=== PATIENT | male | born 1995 | race Caucasian/White ===

== ENCOUNTER 2017-10-21 15:20 | Emergency (ER) | payer MEDICAID, OTHER ==
[~2017-10-21 15:20] MED LIST: ARIP1TAB5 PO; ARIP5S PO
[2017-10-21 15:23] VITALS: BP 148/70; PULSE 73; RESP 18; TEMP 98.6
[2017-10-21] MEDS ORDERED: LIDOCAINE 1%/EPINEPHrine 1:100,000 SOLN 20 ML VIAL INFIL ONE (15:30)
[2017-10-21] MEDS ORDERED: ACETAMINOPHEN/HYDROcodone 325 MG/5 MG TAB PO ONE (15:30)
[2017-10-21] MEDS ORDERED: TETANUS/DIPHTHERIA TOXOID ADULT 0.5 ML VIAL IM ONE (15:30)
--- NOTE | 2017-10-21 15:31 | PD ---
HPI Chief Complaint: Laceration/Skin Injury Time Seen by Provider: 15:30 Travel History International Travel<30 days: No Contact w/Intl Traveler<30days: No Traveled to known affect area: No History of Present Illness HPI 22-year-old male since for evaluation laceration to the anterior left. It was sustained prior to arrival when he was using a chainsaw to cut trees and the chainsaw kicked back and cut his thigh. He now has pain at the site of the laceration, throbbing, worse with palpation. Denies any numbness, tingling, weakness distal to the injury site. His last tetanus vaccination is unknown. No other complaints. PFSH Past Medical History ADHD: Yes (self) Bipolar Disorder: Yes Cancer: No Diabetes: No Diminished Hearing: No Psychiatric: Yes (adhd) Immunizations Current: Yes Migraines: Yes Seizures: No Thyroid Disease: No Ulcer: No Past Surgical History Appendectomy: No Cholecystectomy: No Social History Alcohol Use: Yes Tobacco Use: Yes Substance Use: No Allergies-Medications (Allergen,Severity, Reaction): Coded Allergies: No Known Allergies (Unverified , 10/21/17) Reported Meds & Prescriptions Reported Meds & Active Scripts Active Keflex (Cephalexin) 500 Mg Cap 500 Mg PO Q8H 5 Days Reported Abilify (Aripiprazole) 10 Mg Tab 10 Mg PO HS Abilify oral solution (Aripiprazole) 1 Mg/Ml Kely 10 Mg PO HS Review of Systems General / Constitutional: No: Fever, Chills Musculoskeletal: Positive: Pain Skin: Positive Other (positive for laceration, pain) Neurologic: No: Paresthesia Physical Exam Narrative GENERAL: Well-developed well-nourished male in no acute distress SKIN: Warm and dry. 5 cm linear laceration to the anterior proximal left thigh. It extends through the dermis. There is some visible subcutaneous tissue. No bony visibility. No current bleeding. HEAD: Atraumatic. Normocephalic. EYES: Pupils equal and round. No scleral icterus. No injection or drainage. ENT: No nasal bleeding or discharge. Mucous membranes pink and moist. NECK: Trachea midline. No JVD. CARDIOVASCULAR: Regular rate and rhythm. No murmur appreciated. RESPIRATORY: No accessory muscle use. Clear to auscultation. Breath sounds equal bilaterally. MUSCULOSKELETAL: Skin as noted above. The patient maintains full range of motion to left leg. 2+ dorsalis pedis pulse. Data Data Last Documented VS Vital Signs Date Time Temp Pulse Resp B/P (MAP) Pulse Ox O2 Delivery O2 Flow Rate FiO2 10/21/17 15:23 98.6 73 18 148/70 (96) Orders Orders Lidocai-Epi 1%-1:100,000 Inj (Xylocaine- (10/21/17 15:30) Tetanus/Diphtheria Tox Adult (Tetanus/Di (10/21/17 15:30) Femur (Ap & Lat/2vws) (10/21/17 ) Acetamin-Hydrocod 325-5 Mg ([place] 5-325 (10/21/17 15:30) MDM Medical Decision Making Medical Screen Exam Complete: Yes Emergency Medical Condition: Yes Medical Record Reviewed: Yes Differential Diagnosis Cutaneous laceration, open fracture, neurovascular injury, muscle injury, retained foreign body Narrative Course X-ray imaging will be obtained. Tetanus status updated. The laceration will be thoroughly irrigated and repaired with fracisco, he verbally consents. Procedures Procedure Narrative LACERATION LOCATION: Left thigh LENGTH: 5 cm NUMBER OF STITCHES/FRACISCO: 21 REPAIR: The area of the laceration was prepped with Betadine and sterilely draped. The laceration was infiltrated with 1% lidocaine with epinephrine. The wound was copiously irrigated and explored without evidence of foreign body , tendon injury or neurovascular injury. The wound was closed using fracisco. This was a single layer repair. A sterile dressing was applied. The patient was advised to keep the dressing clean and dry. Patient tolerated the procedure well. Diagnosis Primary Impression: Thigh laceration Additional Instructions: Wash gently with soap and water and apply antibiotic cream and clean bandages twice a day. Antibiotic as prescribed. Return in approximately 14 days for staple removal. Med/Other Pt SpecificInfo: Prescription(s) given, Wound Care Scripts Cephalexin (Keflex) 500 Mg Cap 500 MG PO Q8H for Infection for 5 Days, #15 CAP 0 Refills Prov: Shilpa Ballard MD 10/21/17 Disposition: 01 DISCHARGE HOME Condition: Stable Jovanni Bowles Oct 21, 2017 15:31
[2017-10-21] MEDS ORDERED: CEPH-460 PO (16:27)
--- NOTE | 2017-10-21 16:36 | RADRPT ---
EXAM DATE/TIME: 10/21/2017 15:52 [facility] COMPARISON: No previous studies available for comparison. INDICATIONS : Left femur laceration with chainsaw. MEDICAL HISTORY : None. SURGICAL HISTORY : None. ENCOUNTER: Initial ACUITY: 1 day PAIN SCORE: 10/10 LOCATION: Left middle femur. FINDINGS: 4 views of the left femur demonstrate no fracture or dislocation. Mineralization is normal. No defini te soft tissue abnormality is seen. No radiopaque foreign body is identified. CONCLUSION: There is no radiopaque foreign body. No acute osseous abnormality is present. Luis Ospina MD on October 21, 2017 at 16:33 Board Certified Radiologist. This report was verified electronically.
== END 2017-10-21 17:07 | disposition home or self-care (01) ==
LOC: NEPK 15:20
DX: S71.112A Laceration without foreign body, left thigh, initial encounter (principal); W29.3XXA Contact with powered garden and outdoor hand tools and machinery, initial encounter; Y93.H2 Activity, gardening and landscaping; Z23 Encounter for immunization
CPT/HCPCS: 12002; 73552; 90471; 90714

== ENCOUNTER 2017-11-11 18:55 | Emergency (ER) | payer SELFPAY ==
[~2017-11-11 18:55] MED LIST changes: +CEPH-460 PO
[2017-11-11 19:16] VITALS: BP 140/63; PULSE 80; RESP 16; TEMP 97.5; O2SAT 98
--- NOTE | 2017-11-11 20:23 | PD ---
HPI Chief Complaint: Wound/Suture/Staple Re-Check Time Seen by Provider: 20:21 Travel History International Travel<30 days: No Contact w/Intl Traveler<30days: No Traveled to known affect area: No History of Present Illness HPI 22-year-old male presents to the ED for staple removal. Patient sustained a laceration of his left thigh on November 18 while working with a chainsaw. He reports no fevers, chills, drainage from the wound. PFSH Past Medical History ADHD: Yes (self) Bipolar Disorder: Yes Cancer: No Diabetes: No Diminished Hearing: No Psychiatric: Yes (adhd) Immunizations Current: Yes Migraines: Yes Seizures: No Thyroid Disease: No Ulcer: No Past Surgical History Appendectomy: No Cholecystectomy: No Social History Alcohol Use: Yes Tobacco Use: Yes Substance Use: No Allergies-Medications (Allergen,Severity, Reaction): Coded Allergies: No Known Allergies (Unverified , 10/21/17) Reported Meds & Prescriptions Reported Meds & Active Scripts Active Keflex (Cephalexin) 500 Mg Cap 500 Mg PO Q8H 5 Days Reported Abilify (Aripiprazole) 10 Mg Tab 10 Mg PO HS Abilify oral solution (Aripiprazole) 1 Mg/Ml Kely 10 Mg PO HS Review of Systems Except as stated in HPI: all other systems reviewed are Neg Physical Exam Narrative GENERAL: Well-nourished, well-developed white male in no acute distress. SKIN: Focused skin assessment warm/dry. There is a approximate 7 cm laceration over the left thigh with surgical fracisco in place. Mild localized erythema. No cellulitic changes. HEAD: Normocephalic. EYES: No scleral icterus. No injection or drainage. NECK: Supple, trachea midline. No JVD or lymphadenopathy. CARDIOVASCULAR: Regular rate and rhythm without murmurs, gallops, or rubs. RESPIRATORY: Breath sounds equal bilaterally. No accessory muscle use. GASTROINTESTINAL: Abdomen soft, non-tender, nondistended. MUSCULOSKELETAL: No cyanosis, or edema. BACK: Nontender without obvious deformity. No CVA tenderness. Data Data Last Documented VS Vital Signs Date Time Temp Pulse Resp B/P (MAP) Pulse Ox O2 Delivery O2 Flow Rate FiO2 11/11/17 19:16 97.5 80 16 140/63 (88) 98 Orders Orders Ed Discharge Order (3/19/18 20:23) [facility] Medical Decision Making Medical Screen Exam Complete: Yes Emergency Medical Condition: Yes Differential Diagnosis Wound recheck versus wound infection versus staple removal versus other Narrative Course 22-year-old male presents to the ED for staple removal. Patient sustained a laceration of his left thigh on November 18 while working with a chainsaw. He reports no fevers, chills, drainage from the wound. Vitals reviewed. Physical exam reveals well-healed laceration of the left thigh. 21 surgical fracisco were removed without incident. Patient is instructed to keep the wound clean and covered, follow with the primary care. He is stable and discharged home. Diagnosis Primary Impression: Encounter for removal of fracisco Referrals: Primary Care Physician Additional Instructions: Rest, hydrate. Keep the wound clean and dry. Follow with the primary care provider. Return to the ED for worsening symptoms or any urgent or emergent medical condition. Disposition: 01 DISCHARGE HOME Condition: Stable Amira Long Nov 11, 2017 20:23
== END 2017-11-11 21:10 | disposition home or self-care (01) ==
LOC: NED 18:55 → NEPK 21:10
DX: Z48.02 Encounter for removal of sutures (principal)
CPT/HCPCS: 99281